=== PATIENT | female | born 1965 | race Caucasian/White ===

== ENCOUNTER 2018-05-31 12:09 | Day surgery (SDC) | payer MEDICAID ==
[2018-05-31] MEDS ORDERED: Marcaine 0.5% SDV 10 ML IJ ONE (12:10)
[2018-05-31] MEDS ORDERED: DIPRIVAN 200 MG/20 ML IV ONE (12:10)
[2018-05-31] MEDS ORDERED: Depo-Medrol 40 MG/ML IM ONE (12:10)
[2018-05-31] MEDS ORDERED: Ketamine HCl 50 MG/ML IJ ONE (12:10)
--- NOTE | 2018-05-31 14:10 | XRAY ---
14 seconds fluoroscopy time in surgery for bilateral S-I joint injections.
--- NOTE | 2018-05-31 14:11 | XRAY ---
Indication: Bilateral SI joint injection. Intraoperative fluoroscopy was provided for 14 seconds. 4 digital spot images submitted for interpretation demonstrates posterior needle tip projecting over the inferior left and right SI joints. Correlate with intraoperative findings/report.
[2018-05-31] MEDS ORDERED: Lactated Ringers 1,000 ML IV ONE (18:05)
== END 2018-05-31 13:47 | disposition home or self-care (01) ==
LOC: SDC-PAIN 12:09
PROVIDERS: ATTEND Psychiatry & Neurology Pain Medicine
DX: M53.3 Sacrococcygeal disorders, not elsewhere classified (principal); M46.1 Sacroiliitis, not elsewhere classified; Z79.899 Other long term (current) drug therapy; I10 Essential (primary) hypertension; M19.90 Unspecified osteoarthritis, unspecified site; K21.9 Gastro-esophageal reflux disease without esophagitis
CPT/HCPCS: 27096; 72020; 77002; J1030; J2704; G0260

== ENCOUNTER 2018-06-14 14:52 | Day surgery (SDC) | payer MEDICAID ==
[2018-06-14] MEDS ORDERED: Marcaine 0.5% SDV 10 ML IJ ONE (14:53)
[2018-06-14] MEDS ORDERED: Xylocaine 1% Vial 30 ML PF IJ ONE (14:53)
[2018-06-14] MEDS ORDERED: Depo-Medrol 40 MG/ML IM ONE (14:53)
--- NOTE | 2018-06-15 08:43 | XRAY ---
Indication: Left knee injection. Intraoperative fluoroscopy was provided for 13 seconds. Single digital spot image submitted for interpretation demonstrates needle tip projecting over the left femur intercondylar notch. Small amount of contrast injected for needle tip placement. Correlate with intraoperative findings/report.
--- NOTE | 2018-06-15 08:45 | XRAY ---
13 seconds fluoroscopy time in surgery for left knee injection.
== END 2018-06-14 16:56 | disposition home or self-care (01) ==
LOC: SDC-PAIN 14:52
PROVIDERS: ATTEND Psychiatry & Neurology Pain Medicine
DX: M17.0 Bilateral primary osteoarthritis of knee (principal); Z79.899 Other long term (current) drug therapy; I10 Essential (primary) hypertension; K21.9 Gastro-esophageal reflux disease without esophagitis; E66.9 Obesity, unspecified
CPT/HCPCS: 20610; 73560; 77002; 84703; J1030; J2001; Q9967

== ENCOUNTER 2018-06-28 11:57 | Day surgery (SDC) | payer MEDICAID ==
[2018-06-28] MEDS ORDERED: DIPRIVAN 200 MG/20 ML IV ONE (11:58)
[2018-06-28] MEDS ORDERED: Depo-Medrol 40 MG/ML IM ONE (11:58)
[2018-06-28] MEDS ORDERED: Marcaine 0.5% SDV 10 ML IJ ONE (11:58)
[2018-06-28] MEDS ORDERED: Ketamine HCl 50 MG/ML IJ ONE (11:58)
[2018-06-28] MEDS ORDERED: Lactated Ringers 1,000 ML IV ONE (14:57)
--- NOTE | 2018-06-28 16:10 | XRAY ---
Indication: Right knee injection. Intraoperative fluoroscopy was provided for 8 seconds. Single digital spot image submitted for interpretation demonstrates needle tip projecting over the right intercondylar notch. Small amount of contrast injected for needle tip placement. Correlate with intraoperative findings/report.
--- NOTE | 2018-06-28 16:14 | XRAY ---
11 seconds of fluoroscopy was used in surgery for a left intra-articular knee injection.
--- NOTE | 2018-06-28 16:14 | XRAY ---
8 seconds of fluoroscopy was used in surgery for a right intra-articular knee injection.
--- NOTE | 2018-06-28 16:15 | XRAY ---
Indication: Left knee injection. Intraoperative fluoroscopy was provided for 11 seconds. Single digital spot image submitted for interpretation demonstrates needle tip projecting over the left intercondylar notch. Small amount of contrast injected for needle tip placement. Correlate with intraoperative findings/report.
== END 2018-06-28 14:02 | disposition home or self-care (01) ==
LOC: SDC-PAIN 11:57
PROVIDERS: ATTEND Psychiatry & Neurology Pain Medicine
DX: M17.0 Bilateral primary osteoarthritis of knee (principal); I10 Essential (primary) hypertension; K21.9 Gastro-esophageal reflux disease without esophagitis; E66.9 Obesity, unspecified; Z79.899 Other long term (current) drug therapy
CPT/HCPCS: 20610; 73560; 77002; 84703; J1030; J2704; Q9966

== ENCOUNTER 2018-11-01 12:12 | Day surgery (SDC) | payer OTHER ==
[2018-11-01] MEDS ORDERED: Depo-Medrol 40 MG/ML IM ONE (12:13)
[2018-11-01] MEDS ORDERED: Xylocaine 1% Vial 30 ML PF IJ ONE (12:13)
[2018-11-01] MEDS ORDERED: Sodium Chloride 0.9(Preservative Free) 10 ML IJ ONE (12:13)
[2018-11-01] MEDS ORDERED: Ketamine HCl 50 MG/ML ONE (13:12)
[2018-11-01] MEDS ORDERED: DIPRIVAN 200 MG/20 ML IV ONE (13:12)
--- NOTE | 2018-11-01 14:50 | XRAY ---
Indication: Lumbar NASRIN. Intraoperative fluoroscopy was provided for 15 seconds. 3 digital spot images submitted for interpretation demonstrates midline needle tip projecting just posterior to the lumbosacral junction interspace. Small amount of contrast injected for needle tip placement. Correlate with intraoperative findings/report.
--- NOTE | 2018-11-01 14:53 | XRAY ---
15 seconds fluoroscopy time in surgery for lumbar NASRIN.
[2018-11-01] MEDS ORDERED: Lactated Ringers 1,000 ML IV ONE (15:54)
== END 2018-11-01 13:41 | disposition home or self-care (01) ==
LOC: SDC-PAIN 12:12
PROVIDERS: ATTEND Psychiatry & Neurology Pain Medicine
DX: M54.16 Radiculopathy, lumbar region (principal); I10 Essential (primary) hypertension; K21.9 Gastro-esophageal reflux disease without esophagitis; F32.9 Major depressive disorder, single episode, unspecified; Z79.899 Other long term (current) drug therapy
CPT/HCPCS: 72100; 77003; 84703; J1030; J2001; J2704

== ENCOUNTER 2019-04-25 09:02 | Day surgery (SDC) | payer OTHER ==
[2019-04-25] MEDS ORDERED: Sodium Chloride 0.9(Preservative Free) 10 ML IJ ONE (09:03)
[2019-04-25] MEDS ORDERED: Xylocaine 1% Vial 30 ML PF IJ ONE (09:03)
[2019-04-25] MEDS ORDERED: Depo-Medrol 40 MG/ML IM ONE (09:03)
[2019-04-25] MEDS ORDERED: DIPRIVAN 200 MG/20 ML IV ONE (10:08)
[2019-04-25] MEDS ORDERED: Ketamine HCl 50 MG/ML ONE (10:08)
--- NOTE | 2019-04-25 11:47 | XRAY ---
Indication: Lumbar NASRIN. Intraoperative fluoroscopy was provided for 18 seconds. Single lateral digital spot image submitted for interpretation demonstrate posterior needle tip projecting just posterior to the L3-L4 interspace. Small amount of contrast injected for needle tip placement. Correlated with intraoperative findings/report.
--- NOTE | 2019-04-25 11:51 | XRAY ---
18 seconds fluoroscopy time in surgery for lumbar NASRIN.
[2019-04-25] MEDS ORDERED: Lactated Ringers 1,000 ML IV ONE (13:38)
== END 2019-04-25 10:45 | disposition home or self-care (01) ==
LOC: SDC-PAIN 09:02
PROVIDERS: ATTEND Psychiatry & Neurology Pain Medicine
DX: M54.16 Radiculopathy, lumbar region (principal); I10 Essential (primary) hypertension; K21.9 Gastro-esophageal reflux disease without esophagitis; Z79.899 Other long term (current) drug therapy
CPT/HCPCS: 62321; 72100; 77003; J1030; J2001; J2704; Q9966

== ENCOUNTER 2019-09-19 10:58 | Day surgery (SDC) | payer OTHER ==
[2019-09-19] MEDS ORDERED: Sodium Chloride 0.9(Preservative Free) 10 ML IJ ONE (10:59)
[2019-09-19] MEDS ORDERED: Depo-Medrol 40 MG/ML IM ONE (10:59)
[2019-09-19] MEDS ORDERED: Ketamine HCl 50 MG/ML ONE (12:36)
[2019-09-19] MEDS ORDERED: DIPRIVAN 200 MG/20 ML IV ONE (12:36)
[2019-09-19] MEDS ORDERED: Lactated Ringers 1,000 ML IV ONE (13:52)
--- NOTE | 2019-09-22 18:18 | XRAY ---
Indication: Right L4-S1 transforaminal NASRIN. Intraoperative fluoroscopy was provided for 30 seconds. 4 digital spot images demonstrate posterior needle tips projected over the expected course of the right L4 and L5 nerve roots. A small amount of contrast has been injected for needle tip placement. Correlate with intraoperative findings/report.
--- NOTE | 2019-09-24 07:45 | XRAY ---
30 seconds fluoroscopy time in surgery for right L4-S1 transforaminal NASRIN.
== END 2019-09-19 13:08 | disposition home or self-care (01) ==
LOC: SDC-PAIN 10:58
PROVIDERS: ATTEND Psychiatry & Neurology Pain Medicine
DX: M54.16 Radiculopathy, lumbar region (principal); I10 Essential (primary) hypertension; K21.9 Gastro-esophageal reflux disease without esophagitis; Z79.899 Other long term (current) drug therapy
CPT/HCPCS: 64483; 64484; 72100; 77003; J1030; J2704; Q9966

== ENCOUNTER 2020-01-07 09:31 | Day surgery (SDC) | payer OTHER ==
[2020-01-07] MEDS ORDERED: Lactated Ringers 1,000 ML IV ONE ×2 (10:04→12:38)
[2020-01-07] MEDS ORDERED: Lactated Ringers 1,000 ML IV SCH (10:30)
[2020-01-07] MEDS ORDERED: DIPRIVAN 200 MG/20 ML IV ONE ×3 (10:34→12:39)
[2020-01-07] MEDS ORDERED: Versed 2 MG/2 ML Injection ONE (10:34)
[2020-01-07 10:39] LABS: ALBUMIN 3.8 g/dL (3.5-5.0); BILIRUBIN,TOTAL 0.6 mg/dL (0.2-1.3); Total Protein 7.1 g/dL (6.3-8.2)
--- NOTE | 2020-01-07 13:13 | HP ---
HISTORY: This is a patient who presents to me for EGD and colonoscopy. She has a history of Marks's disease, hiatal hernia, as well as colon polyps. PAST MEDICAL HISTORY: Arthritis. Sinus disease. PAST SURGICAL HISTORY: Total abdominal hysterectomy, bilateral salpingo-oophorectomy. Sinus surgery. MEDICATIONS: Lisinopril, omeprazole, topiramate, mometasone aerosol, Albuterol, hydrocodone, Dulcolax. ALLERGIES: LATEX. ADHESIVE. FAMILY HISTORY: Diabetes. Cancer. PHYSICAL EXAMINATION: GENERAL: No acute distress. CVS: Regular rate and rhythm. PULMONARY: Nonlabored respirations. ABDOMEN: Soft, nontender, nondistended. EXTREMITIES: Normal. LAB DATA AND TESTS: Labs and ultrasound results reviewed with the patient immediately prior to the procedure. DIAGNOSES: 1) Marks's esophagus. 2) Hiatal hernia. 3) Reflux disease. 4) History of colon polyps. PLAN: EGD and colonoscopy. The patient will be following up with me after due to right upper quadrant as well.
[2020-01-07 13:56] VITALS: O2SAT 98
[2020-01-07 14:03] VITALS: BP 136/87; PULSE 70
--- NOTE | 2020-01-08 11:04 | OP ---
PROCEDURE DATE/TIME: 01/07/2020 1208 PREOPERATIVE DIAGNOSES: 1) Marks's disease. 2) Hiatal hernia. 3) Reflux disease. 4) History of colon polyps. POSTOPERATIVE DIAGNOSES: 1) Marks's esophagitis. 2) Small hiatal hernia. 3) Mild gastritis. 4) Rectal polyp and ascending colonic lipoma. PROCEDURES: 1) EGD with biopsies. 2) Colonoscopy with hot forceps polypectomy and hot forceps biopsy. PROCEDURE PERFORMED BY: Jazmine Pizarro M.D. ANESTHESIA: MAC. ESTIMATED BLOOD LOSS: Minimal. COMPLICATIONS: None. SPECIMENS: 1) Distal esophageal biopsies for Marks's disease. 2) Antral biopsy; rule out Helicobacter pylori. 3) Rectal polyp and ascending colon submucosal mass. HISTORY: This is a patient who presents for EGD and colonoscopy. She has a history of polyps as well as history of Marks's disease with reflux symptoms and hiatal hernia. All risks, benefits, alternatives, H&P completed with the patient preoperatively. Any remaining questions answered. DESCRIPTION OF PROCEDURE: She was then brought back to the endoscopy suite, laid in the left lateral decubitus position. A complete time out performed. The scope gently introduced in the mouth, oropharynx, down to the esophagus, stomach and duodenum. The duodenum was normal. There were no findings here. No duodenitis. No masses. Duodenum was visualized until approximately the beginning level of the third portion of the duodenum. The scope was then withdrawn into the stomach. In the stomach she had some mild gastritis throughout the lower body and antrum. Antral biopsy taken to rule out Helicobacter pylori disease. The site looked hemostatic. We retroflexed as well. The patient had the known hiatal hernia which was visualized. We then carefully withdrew the scope to the distal esophagus and had about 1 cm column to 1.5 cm at the longest site with reflux disease. She also had two other smaller columns with just scattered islands of irregular mucosa. All sites were biopsied including biopsies of all four quadrants of the esophagus here and these were all sent to pathology due to her Marks's disease. The remainder of the esophagus was normal. All biopsy sites were hemostatic when the scope was removed. The patient tolerated the procedure well. There were no immediate complications. She was then repositioned for colonoscopy. First, a rectal exam was done and this was normal except for internal and external hemorrhoidal tissue. The scope was then inserted and gently advanced to the level of the cecum. The cecum was identified clearly by identifying the appendiceal orifice as well as the ileocecal valve. The ileocecal valve was intubated. The immediate terminal ileum was normal this was seen for only approximately 5 cm. The scope was then carefully withdrawn taking a circumferential view of the colon. The patient does have a submucosal mass in the ascending colon that is approximately 8 to 10 cm away from the cecum, this lesion is soft, looks slightly yellow under the mucosa. All findings are consistent with benign lipomatous etiology. I did attempt to biopsy here using initially a cold biopsy to obtain tissue sample and then hot biopsy to cauterize the mucosa. We then further withdrew the scope. She had very trace diverticulosis as well as one small rectal polyp this was taken with hot forceps in entirety and sent to pathology. The internal and external hemorrhoids were visualized and then the scope was completely withdrawn. The patient tolerated the procedure very well. There were no immediate complications. She is going to be following up with me as an outpatient to discuss all of the pathology results. Based on the pathology results we will determine when her scope interval will be. At this time I will plan to do an EGD in approximately one year and a colonoscopy in approximately one to three years depending on the pathology of the submucosal mass.
== END 2020-01-07 14:00 | disposition home or self-care (01) ==
LOC: SDC 09:31
PROVIDERS: ATTEND Surgery
DX: Z12.11 Encounter for screening for malignant neoplasm of colon (principal); K22.70 Barrett's esophagus without dysplasia; K44.9 Diaphragmatic hernia without obstruction or gangrene; Z86.010 Personal history of colon polyps; K21.9 Gastro-esophageal reflux disease without esophagitis; Z79.899 Other long term (current) drug therapy; I10 Essential (primary) hypertension; K29.50 Unspecified chronic gastritis without bleeding; K21.00 Gastro-esophageal reflux disease with esophagitis, without bleeding; D12.8 Benign neoplasm of rectum
CPT/HCPCS: 36415; 80076; 88305; J2250; J2704

== ENCOUNTER 2020-05-14 12:15 | Day surgery (SDC) | payer OTHER ==
[2020-05-14] MEDS ORDERED: SYNVISC 16 MG/2 ML SYRINGE IU ONE (12:16)
[2020-05-14] MEDS ORDERED: DIPRIVAN 200 MG/20 ML IV ONE (13:50)
[2020-05-14] MEDS ORDERED: Ketamine HCl 50 MG/ML ONE (13:50)
--- NOTE | 2020-05-14 15:13 | XRAY ---
Indication: Left knee injection. Intraoperative fluoroscopy provided for 7 seconds. Single digital spot image submitted for interpretation demonstrates needle tip projecting over the left femur intercondylar notch. Small amount of contrast injected for needle tip placement. Correlate with intraoperative findings/report.
--- NOTE | 2020-05-14 15:13 | XRAY ---
Indication: Right knee injection. Intraoperative fluoroscopy provided for 9 seconds. Single digital spot image submitted for interpretation demonstrates needle tip projecting over the right femur intercondylar notch. Small amount of contrast injected for needle tip placement. Correlate with intraoperative findings/report.
--- NOTE | 2020-05-14 15:20 | XRAY ---
9 seconds fluoroscopy time in surgery for intra-articular injection of the right knee.
--- NOTE | 2020-05-14 15:20 | XRAY ---
7 seconds fluoroscopy time in surgery for intra-articular injection of the left knee.
[2020-05-14] MEDS ORDERED: Lactated Ringers 1,000 ML IV ONE (16:21)
== END 2020-05-14 14:21 | disposition home or self-care (01) ==
LOC: SDC-PAIN 12:15
PROVIDERS: ATTEND Psychiatry & Neurology Pain Medicine
DX: M17.0 Bilateral primary osteoarthritis of knee (principal); I10 Essential (primary) hypertension; K21.9 Gastro-esophageal reflux disease without esophagitis; Z79.899 Other long term (current) drug therapy
CPT/HCPCS: 20610; 73560; 77002; J2704; J7325; Q9966

== ENCOUNTER 2020-05-21 12:52 | Day surgery (SDC) | payer OTHER ==
[2020-05-21] MEDS ORDERED: SYNVISC 16 MG/2 ML SYRINGE IU ONE (12:53)
[2020-05-21] MEDS ORDERED: Xylocaine 1% Vial 30 ML PF IJ ONE (12:53)
[2020-05-21] MEDS ORDERED: DIPRIVAN 200 MG/20 ML IV ONE (14:36)
[2020-05-21] MEDS ORDERED: Ketamine HCl 50 MG/ML ONE (14:36)
[2020-05-21] MEDS ORDERED: Lactated Ringers 1,000 ML IV ONE (15:15)
--- NOTE | 2020-05-21 16:27 | XRAY ---
Indication: Left knee injection. Intraoperative fluoroscopy provided for 6 seconds. Single digital spot images submitted for interpretation demonstrates needle tip projecting over the left femur intercondylar notch. Small amount of contrast injected for needle tip placement. Correlate with intraoperative findings/report.
--- NOTE | 2020-05-21 16:27 | XRAY ---
Indication: Right knee injection. Intraoperative fluoroscopy provided for 6 seconds. Single digital spot images submitted for interpretation demonstrates needle tip projecting over the right femur intercondylar notch. Small amount of contrast injected for needle tip placement. Correlate with intraoperative findings/report.
--- NOTE | 2020-05-21 16:28 | XRAY ---
6 seconds of fluoroscopy was used in surgery for a right intra-articular knee injection.
--- NOTE | 2020-05-21 16:28 | XRAY ---
6 seconds of fluoroscopy was used in surgery for a left intra-articular knee injection.
== END 2020-05-21 15:01 | disposition home or self-care (01) ==
LOC: SDC-PAIN 12:52
PROVIDERS: ATTEND Psychiatry & Neurology Pain Medicine
DX: M17.0 Bilateral primary osteoarthritis of knee (principal); I10 Essential (primary) hypertension; K21.9 Gastro-esophageal reflux disease without esophagitis; Z79.899 Other long term (current) drug therapy
CPT/HCPCS: 20610; 73560; 77002; J2001; J2704; J7325; Q9966

== ENCOUNTER 2020-05-28 11:41 | Day surgery (SDC) | payer OTHER ==
[2020-05-28] MEDS ORDERED: SYNVISC 16 MG/2 ML SYRINGE IU ONE (11:42)
[2020-05-28] MEDS ORDERED: DIPRIVAN 200 MG/20 ML IV ONE (13:14)
[2020-05-28] MEDS ORDERED: Ketamine HCl 50 MG/ML ONE (13:15)
--- NOTE | 2020-05-28 13:43 | XRAY ---
Indication: Left knee injection. Intraoperative fluoroscopy provided for 5 seconds. Single digital spot image submitted for interpretation demonstrates needle tip projecting over the left femur intercondylar notch. Small amount of contrast injected for needle tip placement. Correlate with intraoperative findings/report.
--- NOTE | 2020-05-28 13:43 | XRAY ---
Indication: Right knee injection. Intraoperative fluoroscopy provided for 6 seconds. Single digital spot image submitted for interpretation demonstrates needle tip projecting over the right femur intercondylar notch. Small amount of contrast injected for needle tip placement. Correlate with intraoperative findings/report.
--- NOTE | 2020-05-28 14:02 | XRAY ---
6 seconds fluoroscopy time for intra-articular injection of the right knee.
--- NOTE | 2020-05-28 14:02 | XRAY ---
5 seconds fluoroscopy time for intra-articular injection of the left knee.
[2020-05-28] MEDS ORDERED: Lactated Ringers 1,000 ML IV ONE (14:36)
== END 2020-05-28 13:41 | disposition home or self-care (01) ==
LOC: SDC-PAIN 11:41
PROVIDERS: ATTEND Psychiatry & Neurology Pain Medicine
DX: M17.0 Bilateral primary osteoarthritis of knee (principal); I10 Essential (primary) hypertension; K21.9 Gastro-esophageal reflux disease without esophagitis; Z79.899 Other long term (current) drug therapy
CPT/HCPCS: 20610; 73560; 77002; J2704; J7325; Q9966

== ENCOUNTER 2020-10-08 12:47 | Day surgery (SDC) | payer OTHER ==
[2020-10-08] MEDS ORDERED: Depo-Medrol 40 MG/ML IM ONE (12:48)
[2020-10-08] MEDS ORDERED: Sodium Chloride 0.9(Preservative Free) 10 ML IJ ONE (12:48)
[2020-10-08] MEDS ORDERED: Xylocaine 1% Vial 30 ML PF IJ ONE (12:48)
[2020-10-08] MEDS ORDERED: DIPRIVAN 200 MG/20 ML IV ONE (14:38)
[2020-10-08] MEDS ORDERED: Lactated Ringers 1,000 ML IV ONE (16:37)
--- NOTE | 2020-10-08 16:40 | XRAY ---
Indication: Caudal NASRIN. Intraoperative fluoroscopy provided for 24 seconds. 2 digital spot image submitted for interpretation demonstrates caudal needle tip projecting mid sacrum. Small amount of contrast injected for needle tip placement. Correlate with intraoperative findings/report.
--- NOTE | 2020-10-08 17:11 | XRAY ---
24 seconds fluoroscopy time in surgery for caudal NASRIN.
== END 2020-10-08 15:05 | disposition home or self-care (01) ==
LOC: SDC-PAIN 12:47
PROVIDERS: ATTEND Psychiatry & Neurology Pain Medicine
DX: M54.16 Radiculopathy, lumbar region (principal); Z79.899 Other long term (current) drug therapy
CPT/HCPCS: 72100; 77003; J1030; J2001; J2704

== ENCOUNTER 2021-02-18 08:36 | Day surgery (SDC) | payer OTHER ==
[2021-02-18] MEDS ORDERED: Sodium Chloride 0.9% 10 ML FLUSH Syringe IJ ONE (08:37)
[2021-02-18] MEDS ORDERED: DIPRIVAN 200 MG/20 ML IV ONE (08:37)
[2021-02-18] MEDS ORDERED: Depo-Medrol 40 MG/ML IM ONE (08:37)
[2021-02-18] MEDS ORDERED: Lactated Ringers 1,000 ML IV ONE (09:22)
--- NOTE | 2021-02-18 10:40 | XRAY ---
Indication: Caudal NASRIN. Intraoperative fluoroscopy provided for 1 minute. Single digital spot image submitted for interpretation demonstrates posterior caudal needle tip projecting mid sacrum. Small amount of contrast injected for needle tip placement. Correlate with intraoperative findings/report.
--- NOTE | 2021-02-18 10:53 | XRAY ---
1 minute fluoroscopy time in surgery for caudal NASRIN.
== END 2021-02-18 10:00 | disposition home or self-care (01) ==
LOC: SDC-PAIN 08:36
PROVIDERS: ATTEND Psychiatry & Neurology Pain Medicine
DX: M54.16 Radiculopathy, lumbar region (principal); I10 Essential (primary) hypertension; Z79.899 Other long term (current) drug therapy
CPT/HCPCS: 62323; 72100; 77003; J1030; J2704; Q9966

== ENCOUNTER 2021-05-20 08:38 | Day surgery (SDC) | payer OTHER ==
[2021-05-20] MEDS ORDERED: Depo-Medrol 40 MG/ML IM ONE (08:39)
[2021-05-20] MEDS ORDERED: BUPIVACAINE 0.5% VIAL IJ ONE (08:39)
[2021-05-20] MEDS ORDERED: DIPRIVAN 200 MG/20 ML IV ONE (10:21)
[2021-05-20] MEDS ORDERED: Lactated Ringers 1,000 ML IV ONE (11:56)
--- NOTE | 2021-05-20 11:59 | XRAY ---
Indication: Right knee injection. Intraoperative fluoroscopy provided for 11 seconds. Single digital spot image submitted for interpretation demonstrates needle tip projecting over the right femur intracondylar notch. Small amount of contrast injected for needle tip placement. Correlate with intraoperative findings/report.
--- NOTE | 2021-05-20 12:00 | XRAY ---
Indication: Left knee injection. Intraoperative fluoroscopy provided for 4 seconds. Single digital spot image submitted for interpretation demonstrates needle tip projecting over the left femur intracondylar notch. Small amount of contrast injected for needle tip placement. Correlate with intraoperative findings/report.
--- NOTE | 2021-05-20 12:04 | XRAY ---
11 seconds of fluoroscopy was used in surgery for a right intra-articular knee injection.
--- NOTE | 2021-05-20 12:04 | XRAY ---
4 seconds of fluoroscopy was used in surgery for a left knee intra-articular injection.
== END 2021-05-20 10:48 | disposition home or self-care (01) ==
LOC: SDC-PAIN 08:38
PROVIDERS: ATTEND Psychiatry & Neurology Pain Medicine
DX: M16.0 Bilateral primary osteoarthritis of hip (principal); I10 Essential (primary) hypertension; Z79.899 Other long term (current) drug therapy
CPT/HCPCS: 20610; 73560; 77002; J1030; J2704; Q9966

== ENCOUNTER 2022-03-10 12:29 | Day surgery (SDC) | payer OTHER ==
[2022-03-10] MEDS ORDERED: ORTHOVISC IU ONE (12:30)
[2022-03-10] MEDS ORDERED: Lactated Ringers 1,000 ML IV ONE (14:36)
[2022-03-10] MEDS ORDERED: DIPRIVAN 200 MG/20 ML IV ONE (14:37)
--- NOTE | 2022-03-10 15:14 | XRAY ---
Indication: Left knee injection. Intraoperative fluoroscopy provided for 15 seconds. Single digital spot image submitted for interpretation demonstrates needle tip projecting over the left femur intracondylar notch. Small amount of contrast injected for needle tip placement. Correlate with intraoperative findings/report.
--- NOTE | 2022-03-10 15:14 | XRAY ---
Indication: Right knee injection. Intraoperative fluoroscopy provided for 2 seconds. Single digital spot image submitted for interpretation demonstrates needle tip projecting over the right femur intracondylar notch. Small amount of contrast injected for needle tip placement. Correlate with intraoperative findings/report.
--- NOTE | 2022-03-10 15:14 | XRAY ---
15 seconds of fluoroscopy was used in surgery for a left intra-articular knee injection.
--- NOTE | 2022-03-10 15:14 | XRAY ---
2 seconds of fluoroscopy was used in surgery for a right intra-articular knee injection.
== END 2022-03-10 15:00 | disposition home or self-care (01) ==
LOC: SDC-PAIN 12:29
PROVIDERS: ATTEND Psychiatry & Neurology Pain Medicine
DX: M17.0 Bilateral primary osteoarthritis of knee (principal); Z79.899 Other long term (current) drug therapy
CPT/HCPCS: 20610; 73560; 77002; J2704; J7324; Q9966

== ENCOUNTER 2022-03-17 12:16 | Day surgery (SDC) | payer OTHER ==
[2022-03-17] MEDS ORDERED: ORTHOVISC IU ONE (12:17)
[2022-03-17] MEDS ORDERED: Lactated Ringers 1,000 ML IV ONE (14:11)
[2022-03-17] MEDS ORDERED: DIPRIVAN 200 MG/20 ML IV ONE (14:24)
[2022-03-17] MEDS ORDERED: MORPHINE SULFATE 2 MG INJ ONE (14:39)
--- NOTE | 2022-03-17 16:26 | XRAY ---
Indication: Right knee injection. Intraoperative fluoroscopy provided for 12 seconds. Single digital spot image submitted for interpretation demonstrates needle tip projecting over the right femur intercondylar notch. Small amount of contrast injected for needle tip placement. Correlate with intraoperative findings/report.
--- NOTE | 2022-03-17 16:26 | XRAY ---
Indication: Left knee injection. Intraoperative fluoroscopy provided for 3 seconds. Single digital spot image submitted for interpretation demonstrates needle tip projecting over the left femur intercondylar notch. Small amount of contrast injected for needle tip placement. Correlate with intraoperative findings/report.
--- NOTE | 2022-03-17 16:30 | XRAY ---
3 seconds of fluoroscopy was used in surgery for a left intra-articular knee injection.
--- NOTE | 2022-03-17 16:30 | XRAY ---
12 seconds of fluoroscopy was used in surgery for a right intra-articular knee injection.
== END 2022-03-17 14:50 | disposition home or self-care (01) ==
LOC: SDC-PAIN 12:16
PROVIDERS: ATTEND Psychiatry & Neurology Pain Medicine
DX: M17.0 Bilateral primary osteoarthritis of knee (principal); Z79.899 Other long term (current) drug therapy
CPT/HCPCS: 20610; 73560; 77002; J2270; J2704; J7324; Q9966

== ENCOUNTER 2022-03-24 11:35 | Day surgery (SDC) | payer OTHER ==
[2022-03-24] MEDS ORDERED: ORTHOVISC IU ONE (11:36)
[2022-03-24] MEDS ORDERED: MORPHINE SULFATE 2 MG INJ ONE (14:56)
[2022-03-24] MEDS ORDERED: Lactated Ringers 1,000 ML IV ONE (16:11)
--- NOTE | 2022-03-24 16:11 | XRAY ---
Indication: Left knee injection. Intraoperative fluoroscopy provided for 8 seconds. Single digital spot image submitted for interpretation demonstrates needle tip projecting over the left femur intercondylar notch. Small amount of contrast injected for needle tip placement. Correlate with intraoperative findings/report.
--- NOTE | 2022-03-24 16:35 | XRAY ---
6 seconds of fluoroscopy was used in surgery for a right intra-articular knee injection.
--- NOTE | 2022-03-24 16:35 | XRAY ---
8 seconds of fluoroscopy was used in surgery for a left intra-articular knee injection.
== END 2022-03-24 15:15 | disposition home or self-care (01) ==
LOC: SDC-PAIN 11:35
PROVIDERS: ATTEND Psychiatry & Neurology Pain Medicine
DX: M17.0 Bilateral primary osteoarthritis of knee (principal); Z79.899 Other long term (current) drug therapy
CPT/HCPCS: 20610; 73560; 77002; 82947; J2270; J7324; Q9966

== ENCOUNTER 2022-09-02 14:30 | Emergency (ER) | payer OTHER ==
[2022-09-02] MEDS ORDERED: TYLENOL 325 MG PO ONE (16:12)
--- NOTE | 2022-09-02 16:16 | ERPHSYRPT ---
- History of Present Illness Time Seen by Provider: 09/02/22 16:12 Source: patient Exam Limitations: no limitations Patient Subjective Stated Complaint: Pt to er c/o/ fall yesterday morning at 0400. pt states she fell getting out of bed "had a sharp stabbing pain in her ri ght knee that buckeled my knee" states her right leg went behind her and she hit her head on the nightstand denies LOC though states she was "dazed". PT reports a severe DE LEON 9/10 and knee pain 7/10 PT was here to see Dr Barba who suggested she come to er. Triage Nursing Assessment: PT arrives to ER ambulatory using a cane (states does not use cane on normal basis) on right side with slight limp noted. pt right knee had mild swelling noted compared to left. PT has a raised area on her head just above right ear from night stand. pt p/w/d resp easy and a@[id number] Physician History: Patient is a 57-year-old female presents to our ED for imaging studies as a referral from her pain doctor Dr. Barba per patient. Patient states she was getting out of bed at 4 AM. Patient's knee buckled causing her to fall. Patient states she normally ambulates with a cane. Patient hit her head on a nightstand. No loss of consciousness. Injury occurred approximately 4 AM. Patient rates her pain 9 out of 10 at her head and 7 out of 10 at her right knee. Symptoms are moderate in intensity. Knee pain worse with weightbearing. Patient has a contusion to the right lateral aspect of her head in the temporal region. This is where she subsequently hit her head on the nightstand when she fell at 4 AM this morning. The fall was mechanical. The fall was not associated with chest pain or shortness of breath. There is no nausea vomiting or diaphoresis. No numbness tingling or weakness. There were no neuro or cardiovascular symptomology at time of fall. Patient otherwise feels well. She voices no other complaints or concerns at this time. Portions of this note were created with voice recognition technology. There may be grammatical, spelling, punctuation or sound alike errors Timing/Duration: today Severity: moderate Modifying Factors: Improves With: other (Weightbearing worsens pain in the right lower extremity) Associated Symptoms: denies symptoms Allergies/Adverse Reactions: adhesive Allergy (Verified 01/07/20 10:12) cat dander Allergy (Verified 01/07/20 10:12) latex Allergy (Verified 01/07/20 10:12) Home Medications: Omeprazole 40 mg PO DAILY 12/24/19 [History] Topiramate [Topamax] 50 mg PO BID 12/24/19 [History] HYDROcodone bitartrate [Hydrocodone Bitartrate ER] 10 mg PO QID PRN 09/02/22 [History] Hx Tetanus, Diphtheria Vaccination/Date Given: Yes Hx Influenza Vaccination/Date Given: Yes Hx Pneumococcal Vaccination/Date Given: No Immunizations Up to Date: Yes Travel Risk - International Travel Have you traveled outside of the country in past 3 weeks: No - Vaccine Status Have you recieved a Covid-19 vaccination: Yes Grades 9 [employer] 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[employer] - Vaccination Dates Date of 2cond Vaccination (if applicable): 2020 Dates if Unknown: unknown - Review of Systems Constitutional: No Symptoms, No Fever, No Chills Eyes: No Symptoms Ears, Nose, & Throat: No Symptoms Respiratory: No Symptoms, No Cough, No Dyspnea Cardiac: No Symptoms, No Chest Pain, No Edema, No Syncope Abdominal/Gastrointestinal: No Symptoms, No Abdominal Pain, No Nausea, No Vomiting, No Diarrhea Genitourinary Symptoms: No Symptoms, No Dysuria Musculoskeletal: No Symptoms, No Back Pain, No Neck Pain Skin: No Symptoms, No Rash Neurological: No Symptoms, No Dizziness, No Focal Weakness, No Sensory Changes Psychological: No Symptoms Endocrine: No Symptoms Hematologic/Lymphatic: No Symptoms Immunological/Allergic: No Symptoms All Other Systems: Reviewed and Negative - Past Medical History Pertinent Past Medical History: Yes Neurological History: No Pertinent History ENT History: No Pertinent History Cardiac History: No Pertinent History Respiratory History: Asthma Endocrine Medical History: No Pertinent History Musculoskeletal History: Osteoarthritis GI Medical History: GERD, Hernia History: Other Psycho-Social History: Anxiety Female Reproductive Disorders: No Pertinent History Other Medical History: seasonal asthma. kidney cyst. barretts esoph. hiatal hernia. gestational diabetic - Past Surgical History Past Surgical History: Yes Neuro Surgical History: No Pertinent History Cardiac: No Pertinent History Respiratory: No Pertinent History Gastrointestinal: No Pertinent History Genitourinary: No Pertinent History Musculoskeletal: No Pertinent History Female Surgical History: Hysterectomy, Section Other Surgical History: sinus surgery - Social History Smoking Status: Never smoker Exposure to second hand smoke: No Drug Use: none - Nursing Vital Signs Nursing Vital Signs: Initial Vital Signs O2 Sat by Pulse Oximetry 98 09/02/22 16:17 Pain Scale Pain Intensity 9 - Physical Exam General Appearance: no apparent distress, alert Eye Exam: PERRL/EOMI, eyes nml inspection Ears, Nose, Throat Exam: normal ENT inspection, TMs normal, pharynx normal, moist mucous membranes Neck Exam: normal inspection, non-tender, supple, full range of motion Respiratory Exam: normal breath sounds, lungs clear, airway intact, No respiratory distress Cardiovascular Exam: regular rate/rhythm, normal heart sounds, normal peripheral pulses Gastrointestinal/Abdomen Exam: soft, normal bowel sounds, No tenderness, No mass Back Exam: normal inspection, normal range of motion, No CVA tenderness, No vertebral tenderness Extremity Exam: normal inspection, normal range of motion, pelvis stable, other (Some tenderness to palpation of the anterior aspect of the right knee.) Neurologic Exam: alert, oriented x 3, cooperative, normal mood/affect, sensation nml, other (There is a scalp contusion right lateral temporal region of head. Overlying soft tissue intact. No open or draining lesions. No lacerations.), No motor deficits Skin Exam: normal color, warm, dry, No rash Lymphatic Exam: No adenopathy SpO2 Interpretation: normal SpO2: 98 O2 Delivery: Room Air - Course Nursing assessment & vital signs reviewed: Yes - Radiology Exams Knee X-ray Interpretation: Reviewed by me (Knee x-ray reveals chronic degenerative changes, osteopenia) Ordered Tests: Active Orders 24 hr Category Date Time Status HEAD WITHOUT CONTRAST [CT] Stat Exams 09/02/22 15:52 Completed KNEE (1 OR 2 VIEW) Stat Exams 09/02/22 15:53 Completed Medication Summary Discontinued Medications Generic Name Dose Route Start Last Admin Trade Name Freq PRN Reason Stop Dose Admin Acetaminophen 975 mg 09/02/22 16:12 09/02/22 16:18 Acetaminophen 325 Mg Tablet PO 09/02/22 16:13 975 mg STAT ONE Administration Acetaminophen Confirm 09/02/22 16:18 Acetaminophen 325 Mg Tablet Administered 09/02/22 16:19 Dose 975 mg .ROUTE .STK-MED ONE - Progress Progress: improved Progress Note: Patient is a 57-year-old female presents to our ED for evaluation status post fall. Patient's knee buckled while getting out of bed. CT head shows no acute intracranial pathology. X-ray of right knee shows no fractures. Chronic arthritic changes observed on knee x-ray. Patient received Tylenol and Toradol for pain control. Patient feels well. No indication for further work-up. Will discharge home. Patient's fall was mechanical and not associated with any neuro or cardiovascular symptomology. Complexity of problem addressed is low acute uncomplicated No critical care time Complexity of data reviewed and analyzed is moderate. Report from CT head and report from the x-ray observed and correlated clinically. Plan of care established accordingly. Risk of complication and or risk morbidity/mortality of patient management is moderate. A prescription for Toradol was forwarded to patient's pharmacy. Plan of care established for shared decision making. Patient agrees to follow- up with her primary care doctor within 48 hours for reevaluation. Vital stable. No social determinants of health present to impede follow-up. Portions of this note were created with voice recognition technology. There may be grammatical, spelling, punctuation or sound alike errors 09/02/22 17:06 Counseled pt/family regarding: diagnosis, need for follow-up, rad results - Departure Departure Disposition: Home Clinical Impression: Knee pain, Fall, Scalp contusion, Osteopenia, Arthritis of knee, right, Hyperostosis interna frontalis, Maxillary polyp retention cyst Condition: Stable Critical Care Time: No Referrals: CARYN FARRELL, [facility] [facility] [Primary Care Provider] - Follow up/PCP as directed Additional Instructions: Discharge/Care Plan TIERNEYCELINA COX was seen on 09/02/22 in the Emergency Room. The patient was counseled regarding Diagnosis,Lab results, Imaging studies, need for follow up and when to return to the Emergency Room. Prescriptions given: Discharge Note I have spoken with the patient and/or caregivers. I have explained the patient's condition, diagnosis and treatment plan based on the information available to me at this time. I have answered the patient's and/or caregiver's questions and addressed any concerns. The patient and/or caregivers have as good understanding of the patient's diagnosis, condition and treatment plan as can be expected at this point. The vital signs have been stable. The patient's condition is stable and appropriate for discharge from the emergency department. The patient will pursue further outpatient evaluation with the primary care physician or other designated or consulting physician as outlined in the discharge instructions. The patient and/or caregivers are agreeable to this plan of care and follow-up instructions have been explained in detail. The patient and/or caregivers have received these instruction. The patient/and or caregivers are aware that any significant change in condition or worsening of symptoms should prompt an immediate return to this or the closest emergency department or call 911.
[2022-09-02 16:17] VITALS: O2SAT 98
[2022-09-02] MEDS ORDERED: TYLENOL 325 MG ONE (16:18)
--- NOTE | 2022-09-02 16:46 | XRAY ---
Indication: Headache and dizziness following right head injury. Multiple contiguous axial images obtained through the head without contrast. Comparison: None Normal appearing brain parenchyma, ventricles, and bony calvarium. Incidental mild hyperostosis frontalis interna and 1.3 cm left maxillary sinus polyp/retention cyst. Remaining visualized paranasal sinuses and mastoid air cells are clear. Impression: Small left maxillary sinus polyp/retention cyst. Remaining CT head without contrast exam is normal.
--- NOTE | 2022-09-02 16:58 | XRAY ---
Indication: Pain following fall. Comparison: None 2 view right knee demonstrates osteopenia, mild medial joint space narrowing/spurring, small tibial tuberosity spurring, small fabella, and focal soft tissue swelling anterior lower leg. No other bony, articular, or soft tissue abnormalities.
[2022-09-02] MEDS ORDERED: TORAdol 30 mg Injection IM ONE (17:06)
[2022-09-02] MEDS ORDERED: TORAdol 30 mg Injection ONE (17:11)
[2022-09-02 17:32] VITALS: BP 124/61; PULSE 66
== END 2022-09-02 17:33 | disposition home or self-care (01) ==
LOC: ED 14:30
DX: S00.03XA Contusion of scalp, initial encounter (principal); W01.190A Fall on same level from slipping, tripping and stumbling with subsequent striking against furniture, initial encounter; Y92.003 Bedroom of unspecified non-institutional (private) residence as the place of occurrence of the external cause; M25.561 Pain in right knee; M85.88 Other specified disorders of bone density and structure, other site; M17.11 Unilateral primary osteoarthritis, right knee; M85.2 Hyperostosis of skull; J34.1 Cyst and mucocele of nose and nasal sinus; Z79.891 Long term (current) use of opiate analgesic; Z79.899 Other long term (current) drug therapy
CPT/HCPCS: 70450; 73560; 96372; 99283; J1885; A9270-GY

== ENCOUNTER 2022-12-22 12:31 | Day surgery (SDC) | payer OTHER ==
[2022-12-22] MEDS ORDERED: Depo-Medrol 40 MG/ML IM ONE (12:32)
[2022-12-22] MEDS ORDERED: Sodium Chloride 0.9(Preservative Free) 10 ML IJ ONE (12:32)
[2022-12-22] MEDS ORDERED: DIPRIVAN 200 MG/20 ML IV ONE (14:44)
[2022-12-22] MEDS ORDERED: ALBUTEROL/Proair Hfa MDI IH ONE (14:45)
[2022-12-22] MEDS ORDERED: Lactated Ringers 1,000 ML IV ONE (14:55)
[2022-12-22] MEDS ORDERED: MORPHINE SULFATE 2 MG INJ ONE (15:11)
[2022-12-22] MEDS ORDERED: BENADRYL 25 MG CAPSULE PO ONE (15:30)
--- NOTE | 2022-12-22 16:45 | XRAY ---
Indication: Caudal NASRIN.. Intraoperative fluoroscopy provided for 33 seconds. 3 digital spot image submitted for interpretation demonstrates caudal needle tip projecting mid sacrum. Small amount of contrast injected for needle tip placement. Correlate with intraoperative findings/report.
--- NOTE | 2022-12-22 16:47 | XRAY ---
33 seconds of fluoroscopy was used in surgery for a caudal NASRIN.
== END 2022-12-22 15:50 | disposition home or self-care (01) ==
LOC: SDC-PAIN 12:31
PROVIDERS: ATTEND Psychiatry & Neurology Pain Medicine
DX: M54.16 Radiculopathy, lumbar region (principal)
CPT/HCPCS: 62323; 72220; 77002; J1030; J2270; J2704; Q9966; A9270-GY

== ENCOUNTER 2023-03-23 12:53 | Day surgery (SDC) | payer OTHER ==
[2023-03-23] MEDS ORDERED: ORTHOVISC IU ONE (12:54)
[2023-03-23] MEDS ORDERED: DIPRIVAN 200 MG/20 ML IV ONE (15:33)
[2023-03-23] MEDS ORDERED: Lactated Ringers 1,000 ML IV ONE (15:46)
[2023-03-23] MEDS ORDERED: TYLENOL 325 MG PO ONE (15:54)
--- NOTE | 2023-03-23 20:24 | XRAY ---
Indication: Left knee injection Intraoperative fluoroscopy provided for 5 seconds. Single digital spot image submitted for interpretation demonstrates needle tip projecting over left femur intercondylar notch. Small amount of contrast injected for needle tip placement. Correlate with intraoperative findings/report.
--- NOTE | 2023-03-23 20:24 | XRAY ---
Indication: Right knee injection Intraoperative fluoroscopy provided for 11 seconds. Single digital spot image submitted for interpretation demonstrates needle tip projecting over right femur intercondylar notch. Small amount of contrast injected for needle tip placement. Correlate with intraoperative findings/report.
--- NOTE | 2023-03-24 09:36 | XRAY ---
11 seconds of fluoroscopy was used in surgery for a right intra-articular knee injection.
--- NOTE | 2023-03-24 09:36 | XRAY ---
5 seconds of fluoroscopy was used in surgery for a left intra-articular knee injection.
== END 2023-03-23 16:08 | disposition home or self-care (01) ==
LOC: SDC-PAIN 12:53
PROVIDERS: ATTEND Psychiatry & Neurology Pain Medicine
DX: M17.0 Bilateral primary osteoarthritis of knee (principal)
CPT/HCPCS: 20610; 73560; 77002; J2704; J7324; Q9966; A9270-GY

== ENCOUNTER 2023-03-30 12:01 | Day surgery (SDC) | payer OTHER ==
[2023-03-30] MEDS ORDERED: ORTHOVISC IU ONE (12:02)
[2023-03-30] MEDS ORDERED: DIPRIVAN 200 MG/20 ML IV ONE (15:27)
[2023-03-30] MEDS ORDERED: Lactated Ringers 1,000 ML IV ONE (15:31)
[2023-03-30] MEDS ORDERED: MORPHINE SULFATE 2 MG INJ ONE (15:40)
--- NOTE | 2023-03-30 16:42 | XRAY ---
7 seconds of fluoroscopy was used in surgery for a left intra-articular knee injection.
--- NOTE | 2023-03-30 16:42 | XRAY ---
6 seconds of fluoroscopy was used in surgery for a right intra-articular shoulder and subacromial bursa injection.
== END 2023-03-30 16:00 | disposition home or self-care (01) ==
LOC: SDC-PAIN 12:01
PROVIDERS: ATTEND Psychiatry & Neurology Pain Medicine
DX: M17.0 Bilateral primary osteoarthritis of knee (principal)
CPT/HCPCS: 20610; 73560; 77002; J2270; J2704; J7324; Q9966

== ENCOUNTER 2023-04-06 11:56 | Day surgery (SDC) | payer OTHER ==
[2023-04-06] MEDS ORDERED: Depo-Medrol 40 MG/ML IM ONE (11:57)
[2023-04-06] MEDS ORDERED: ORTHOVISC IU ONE (11:57)
[2023-04-06] MEDS ORDERED: BUPIVACAINE 0.5% VIAL IJ ONE (11:57)
[2023-04-06] MEDS ORDERED: DIPRIVAN 200 MG/20 ML IV ONE (14:38)
[2023-04-06] MEDS ORDERED: Lactated Ringers 1,000 ML IV ONE (14:41)
[2023-04-06] MEDS ORDERED: MORPHINE SULFATE 2 MG INJ ONE (14:56)
--- NOTE | 2023-04-06 17:07 | XRAY ---
Indication: Left knee injection. Intraoperative fluoroscopy provided for 2 seconds. Single digital spot image submitted for interpretation demonstrates needle tip projecting over left femur intercondylar notch. Small amount of contrast injected for needle tip placement. Correlate with intraoperative findings/report.
--- NOTE | 2023-04-06 17:08 | XRAY ---
Indication: Right knee injection. Intraoperative fluoroscopy provided for 8 seconds. Single digital spot image submitted for interpretation demonstrates needle tip projecting over right femur intercondylar notch. Small amount of contrast injected for needle tip placement. Correlate with intraoperative findings/report.
--- NOTE | 2023-04-06 17:41 | XRAY ---
8 seconds of fluoroscopy was used in surgery for a right intra-articular knee injection.
--- NOTE | 2023-04-06 17:41 | XRAY ---
2 seconds of fluoroscopy was used in surgery for a left intra-articular knee injection.
== END 2023-04-06 15:23 | disposition home or self-care (01) ==
LOC: SDC-PAIN 11:56
PROVIDERS: ATTEND Psychiatry & Neurology Pain Medicine
DX: M17.0 Bilateral primary osteoarthritis of knee (principal)
CPT/HCPCS: 20610; 73560; 77002; J1030; J2270; J2704; J7324; Q9966

== ENCOUNTER 2023-06-22 12:47 | Day surgery (SDC) | payer OTHER ==
[2023-06-22] MEDS ORDERED: Decadron 4 MG INJ IV ONE (12:48)
[2023-06-22] MEDS ORDERED: LIDOCAINE HCL 1% 50 MG/5 ML VL PF IJ ONE (12:48)
[2023-06-22] MEDS ORDERED: Sodium Chloride 0.9(Preservative Free) 10 ML IJ ONE (12:48)
[2023-06-22] MEDS ORDERED: Lactated Ringers 1,000 ML IV ONE (14:59)
[2023-06-22] MEDS ORDERED: DIPRIVAN 200 MG/20 ML IV ONE (15:27)
[2023-06-22] MEDS ORDERED: Xylocaine-Mpf 2% 5 Ml Vial ONE (15:50)
[2023-06-22] MEDS ORDERED: MORPHINE SULFATE 2 MG INJ ONE (16:34)
--- NOTE | 2023-06-22 17:06 | XRAY ---
Indication: Left piriformis injection. Intraoperative fluoroscopy provided for 6 seconds. Single digital spot image submitted for interpretation demonstrates posterior needle tip projecting over left piriformis. Small amount of contrast injected for needle tip placement. Correlate with intraoperative findings/report.
--- NOTE | 2023-06-22 17:06 | XRAY ---
Indication: Left L4-S1 transforaminal NASRIN. Intraoperative fluoroscopy provided for 23 seconds. 4 digital spot image submitted for interpretation demonstrates posterior needle tips projecting over the expected left L4 and L5 nerve roots. Small amount of contrast injected for needle tip placement. Correlate with intraoperative findings/report.
--- NOTE | 2023-06-23 08:57 | XRAY ---
23 seconds of fluoroscopy was used in surgery for a left L4-S1 transforaminal NASRIN.
--- NOTE | 2023-06-23 08:57 | XRAY ---
6 seconds of fluoroscopy was used in surgery for a left piriformis injection.
== END 2023-06-22 16:55 | disposition home or self-care (01) ==
LOC: SDC-PAIN 12:47
PROVIDERS: ATTEND Psychiatry & Neurology Pain Medicine
DX: M54.16 Radiculopathy, lumbar region (principal)
CPT/HCPCS: 20552; 64483; 64484; 72100; 72170; 77002; 77003; J1100; J2001; J2270; J2704; Q9966

== ENCOUNTER 2024-05-23 16:00 | Day surgery (SDC) | payer OTHER ==
[2024-05-23] MEDS ORDERED: BUPIVACAINE 0.5% VIAL IJ ONE (16:01)
[2024-05-23] MEDS ORDERED: ORTHOVISC IU ONE (16:01)
[2024-05-23] MEDS ORDERED: Depo-Medrol 40 MG/ML IM ONE (16:01)
[2024-05-23] MEDS ORDERED: LIDOCAINE HCL 1% AMPUL 5 ML IJ ONE (16:01)
--- NOTE | 2024-05-23 20:39 | XRAY ---
Indication: Right knee injection. Intraoperative fluoroscopy provided for 7 seconds. Single digital spot image submitted for interpretation demonstrates needle tip projecting over right femur intercondylar notch. Small amount of contrast injected for needle tip placement. Correlate with intraoperative findings/report.
--- NOTE | 2024-05-23 20:39 | XRAY ---
Indication: Left knee injection. Intraoperative fluoroscopy provided for 14 seconds. Single digital spot image submitted for interpretation demonstrates needle tip projecting over left femur intercondylar notch. Small amount of contrast injected for needle tip placement. Correlate with intraoperative findings/report.
--- NOTE | 2024-05-23 20:49 | XRAY ---
14 seconds of fluoroscopy were used in surgery for a left intra-articular knee injection.
--- NOTE | 2024-05-23 20:49 | XRAY ---
7 seconds of fluoroscopy were used in surgery for a right intra-articular knee injection.
== END 2024-05-23 17:48 | disposition home or self-care (01) ==
LOC: SDC-PAIN 16:00
PROVIDERS: ATTEND Psychiatry & Neurology Pain Medicine
DX: M17.0 Bilateral primary osteoarthritis of knee (principal); M70.51 Other bursitis of knee, right knee; M70.52 Other bursitis of knee, left knee
CPT/HCPCS: 20550; 20610; 73560; 76942; 77002; 82947; J7324; Q9966

== ENCOUNTER 2024-05-30 14:13 | Day surgery (SDC) | payer OTHER ==
[2024-05-30] MEDS ORDERED: LIDOCAINE HCL 1% AMPUL 5 ML IJ ONE (14:14)
[2024-05-30] MEDS ORDERED: ORTHOVISC IU ONE (14:14)
--- NOTE | 2024-05-30 18:30 | XRAY ---
Indication: Right knee injection. Intraoperative fluoroscopy provided for 12 seconds. Single digital spot image submitted for interpretation demonstrates needle tip projecting over right femur intercondylar notch. Small amount of contrast injected for needle tip placement. Correlate with intraoperative findings/report.
--- NOTE | 2024-05-30 18:31 | XRAY ---
Indication: Left knee injection. Intraoperative fluoroscopy provided for 13 seconds. Single digital spot image submitted for interpretation demonstrates needle tip projecting over left femur intercondylar notch. Small amount of contrast injected for needle tip placement. Correlate with intraoperative findings/report.
--- NOTE | 2024-05-31 08:53 | XRAY ---
13 seconds of fluoroscopy used in surgery for a left intra-articular knee injection.
--- NOTE | 2024-05-31 08:53 | XRAY ---
12 seconds of fluoroscopy used in surgery for a right intra-articular knee injection.
== END 2024-05-30 17:35 | disposition home or self-care (01) ==
LOC: SDC-PAIN 14:13
PROVIDERS: ATTEND Psychiatry & Neurology Pain Medicine
DX: M17.0 Bilateral primary osteoarthritis of knee (principal)
CPT/HCPCS: 20610; 73560; 77002; 82947; J7324; Q9966

== ENCOUNTER 2024-06-06 15:04 | Day surgery (SDC) | payer OTHER ==
[2024-06-06] MEDS ORDERED: ORTHOVISC IU ONE (15:05)
[2024-06-06] MEDS ORDERED: LIDOCAINE HCL 1% AMPUL 5 ML IJ ONE (15:05)
--- NOTE | 2024-06-06 20:30 | XRAY ---
Indication: Left knee injection. Intraoperative fluoroscopy provided for 9 seconds. Single digital spot image submitted for interpretation demonstrates needle tip projecting over left femur intercondylar notch. Small amount of contrast injected for needle tip placement. Correlate with intraoperative findings/report.
--- NOTE | 2024-06-06 20:30 | XRAY ---
Indication: Right knee injection. Intraoperative fluoroscopy provided for 28 seconds. Single digital spot image submitted for interpretation demonstrates needle tip projecting over right femur intercondylar notch. Small amount of contrast injected for needle tip placement. Correlate with intraoperative findings/report.
--- NOTE | 2024-06-06 20:32 | XRAY ---
9 seconds of fluoroscopy were used in surgery for a left intra-articular knee injection.
--- NOTE | 2024-06-06 20:32 | XRAY ---
28 seconds of fluoroscopy were used in surgery for a right intra-articular knee injection.
== END 2024-06-06 18:57 | disposition home or self-care (01) ==
LOC: SDC-PAIN 15:04
PROVIDERS: ATTEND Psychiatry & Neurology Pain Medicine
DX: M17.0 Bilateral primary osteoarthritis of knee (principal)
CPT/HCPCS: 20610; 73560; 77002; J7324; Q9966